=== PATIENT | male | born 1950 | race Caucasian/White ===

== ENCOUNTER 2018-01-20 21:21 | Emergency (ER) | payer MEDICARE, MEDICAID ==
--- NOTE | 2018-01-21 08:54 | ER ---
DATE SEEN: 01/20/2018 TIME SEEN: The patient was seen at 2210 hours. /[id number] ALEC/YASMIN
--- NOTE | 2018-01-24 15:50 | ER ---
DATE SEEN: 01/20/2018 HISTORY OF PRESENT ILLNESS: The patient is status post total prostatectomy, 12/01/2017, suprapubic prostatectomy. He had difficulty passing urine this night. He was sitting in the room, and he tried to get up to pass urine. He passed a large proteinaceous plug that was the size one-half the length of a pencil. It was white in character out his urethra, and now his bladder is clear. Ultrasound was placed on over the bladder, and the bladder was completely empty. CURRENT MEDICATIONS: 1. Flomax. 2. Finasteride. 3. Famotidine. 4. Escitalopram. ALLERGIES: None. PAST MEDICAL HISTORY: No heart disease, no high blood pressure, no asthma. PHYSICAL EXAMINATION: VITAL SIGNS: Blood pressure 159/92, heart rate 75, respirations 18, oxygen saturation 98%, and temperature 36.4 degrees centigrade. GENERAL: Alert man, looks older than his age (has [place] feet of a smoker). HEENT: He wears glasses. Slight decreased hearing. Pharynx without abnormality. LUNGS: Clear to auscultation. HEART: S1 and S2. No murmur. ABDOMEN: Soft. No guarding. No discomfort. Status post previous surgery with midline suprapubic scar mid-distance to the umbilicus, indurated. : There is mild fibrosis of the prostate site, below where the prostatectomy occurred, in the urethra. IMAGING: A quick-look ultrasound demonstrates no fluid in the bladder. He has emptied the bladder completely. ASSESSMENT: The patient no longer has outlet obstruction from this proteinaceous plug, large, half-length of a pencil, white, slightly semi-soft indurated plug of protein has passed. This is a proteinaceous cast of the urethra that sloughed status post prostatectomy. Perhaps, this is residual from the fibrin that has occurred with the healing process. I have reassured the patient. PLAN: To follow up with his doctor as needed. He will get Septra DS one b.i.d. for 3 days as a measure to diminish any bacteria present. Urinalysis shows a few bacteria, 30-40 wbc's, large leukocyte esterase. On this basis, still will be treating with antibiotic. DIAGNOSES: 1. Proteinaceous plug, prostatic urethra. 2. Status post suprapubic prostatectomy for prostate cancer. 3. Leukorrhea and large leukocyte esterase with occult blood, secondary to prostate surgery. 4. Depression. 5. Gastroesophageal reflux disease. /[id number] ALEC/YASMIN
== END 2018-01-20 22:36 | disposition home or self-care (01) ==
LOC: FB.ED 21:21
DX: N21.1 Calculus in urethra (principal); K21.9 Gastro-esophageal reflux disease without esophagitis; F32.9 Major depressive disorder, single episode, unspecified; N39.8 Other specified disorders of urinary system; Z90.79 Acquired absence of other genital organ(s)
CPT/HCPCS: 81001; 99282; 99283

== ENCOUNTER 2022-10-26 15:19 | Emergency (ER) | payer MEDICAID, MEDICARE ==
[2022-10-26] MEDS ORDERED: Diphtheria,Pertussis(Acell),Tetanus Vaccine 0.5 ML Syringe IM ONE (15:49)
[2022-10-26] MEDS ORDERED: amLODIPine 10 MG Tab PO STA (17:01)
== END 2022-10-26 17:35 | disposition home or self-care (01) ==
LOC: FB.ED 15:19
DX: S70.01XA Contusion of right hip, initial encounter (principal); I10 Essential (primary) hypertension; F10.20 Alcohol dependence, uncomplicated; Z72.0 Tobacco use; Z23 Encounter for immunization; W01.0XXA Fall on same level from slipping, tripping and stumbling without subsequent striking against object, initial encounter
CPT/HCPCS: 73502-RT; 90471; 90715; 99283; 99283-25; A9270-GY

== ENCOUNTER 2022-11-25 17:35 | Emergency (ER) | payer MEDICARE ==
[2022-11-25] MEDS ORDERED: Thiamine 200 MG/2 ML MDV IVPUSH ONE (17:43)
[2022-11-25] MEDS ORDERED: Sodium Chloride 0.9% 1,000 ML IV SCH ×2 (17:45→19:15)
[2022-11-25 18:14] LABS: ESTIMATED GFR 97 mL/min (>60)
[2022-11-25] MEDS ORDERED: Ondansetron 4 MG/2 ML SDV IVPUSH ONE (18:25)
== END 2022-11-25 21:05 | disposition home or self-care (01) ==
LOC: FB.ED 17:35
DX: F10.20 Alcohol dependence, uncomplicated (principal); E87.1 Hypo-osmolality and hyponatremia; E46 Unspecified protein-calorie malnutrition; Z72.0 Tobacco use
CPT/HCPCS: 36415; 80053; 80307; 82150; 83690; 84295; 85025; 85610; 96361; 96374; 96375; 99284; J2405; J3411; J7030